=== PATIENT | female | born 1985 | race Caucasian/White ===

== ENCOUNTER 2020-07-04 15:28 | Inpatient (IN) | payer OTHER, SELFPAY ==
[2020-07-04] VITALS (7 sets, daily range): BP systolic 134–167; BP diastolic 88–103; PULSE 88–105; RESP 16–20; TEMP 36.8–37.1; O2SAT 95–98; BMI 51.6; BMI 52.6
--- NOTE | 2020-07-04 16:50 | XR_ITS ---
EXAMINATION: XR CHEST CLINICAL INFORMATION: Shortness of breath. COMPARISON: None TECHNIQUE: Frontal portable view of the chest was obtained. 5:03 PM FINDINGS: No significant abnormality is noted involving the heart, lungs, mediastinum, bony thorax or soft tissues. XR/XR chest 1V IMPRESSION: Unremarkable examination.
--- NOTE | 2020-07-04 16:53 | ED.SOB ---
HPI - SOB/Dyspnea General Chief Complaint: Upper Respiratory Symptoms Stated Complaint: Sob Time Seen by Provider: 07/04/20 16:36 Source: patient Mode of arrival: ambulatory Limitations: no limitations History of Present Illness HPI Narrative: 34-year-old female who is morbidly obese, on oral control pills here with shortness of breath since yesterday. Only with exertion. No associated chest pain, cough, fevers, chills, body aches. No recent travel or sick exposure. No leg swelling or pain. MD elicited complaint: shortness of breath Onset (ago): day(s) (<24hr) Context: occurred during exertion Timing: intermittent Severity: mild Exacerbating factors: movement Relieving factors: rest Associated symptoms: denies other symptoms Treatment prior to arrival: none Related Data Allergies Allergy/AdvReac Type Severity Reaction Status Date / Time No Known Allergies Allergy Verified 07/04/20 15:39 Review of Systems Review of Systems: Yes all other systems are reviewed and are negative Constitutional: Constitutional: Reports no additional constitutional complaints, Denies body ache(s), Denies chills, Denies fever(s), Denies headache(s) and Denies weakness Eyes: Eyes: Reports no additional eye complaints and Denies change in vision ENT: Reports system reviewed and no additional complaints, except as documented, Denies dizziness, Denies headache(s), Denies nasal congestion, Denies nasal discharge and Denies neck pain Cardiovascular: Cardiovascular: Reports no additional cardiovascular complaints, Denies chest pain, Denies leg edema and Reports dyspnea Respiratory: Respiratory: Reports no additional respiratory complaints, Denies cough and Reports dyspnea Gastrointestinal: Gastrointestinal: Reports no additional gastrointestinal complaints, Denies abdominal pain, Denies diarrhea, Denies nausea and Denies vomiting Genitourinary: Genitourinary: Reports no additional female genitourinary complaints and Denies urinary incontinence Musculoskeletal: Musculoskeletal: Reports no additional musculoskeletal complaints, Denies back pain, Denies arthralgias, Denies joint swelling, Denies neck pain, Denies numbness and Denies tingling Integumentary/Breasts: Skin/Breast: Reports system reviewed and no additional complaints, except as docu and Denies rash Neurologic: Reports system reviewed and no additional complaints, except as documented, Denies Abnormal speech present, Denies dizziness, Denies headache(s), Denies numbness, Denies tingling and Denies weakness [facility] Past Medical History Attestation statement: The following information was validated with the patient. Source: old records reviewed and nursing notes reviewed Social History Social History Alcohol intake: current Alcohol intake frequency: holidays/special occasions only Smoking Status: Never smoker Smoked in Last 30 Days: No Use of substances other than those prescribed or required for medical reasons: No Advance Directives: No Advance Directives Information Provided: No Physical Exam Vital Signs: Vital Signs: Last Vital Signs Temp 98.6 F 07/04/20 18:00 Pulse 99 07/04/20 18:36 Resp 17 07/04/20 18:36 BP 144/97 H 07/04/20 18:36 Pulse Ox 96 07/04/20 18:36 Body Mass Index 51.6 Const: General: cooperative, healthy appearing, comfortable and no acute distress Orientation/consciousness: patient oriented x3 Limitations: no limitations HENMT: Head: Yes normal to inspection Ears: hearing grossly normal bilaterally General nose exam: Normal external nose present Face and sinus: Yes normal facial exam Mouth: Normal oral and palatal mucosa present Throat: Yes posterior oropharynx normal Eyes: General: appearance normal, both eyes and all related structures Pupils: Equal, round and reactive pupils present Neck: Neck: Yes normal visual inspection Chest: Chest palpation & inspection: normal inspection of the chest Resp: Effort & Inspection: normal respiratory effort Auscultation: clear to auscultation bilaterally Cardio: Rate: regular rate Rhythm: regular rhythm Peripheral pulses: Peripheral pulses 2+ throughout GI: Inspection: Yes normal to inspection Palpation (GI): Soft to palpation and nontender Auscultation: normal bowel sounds Back/Spine/Pelvis: Thoracic/Lumbar Spine: thoracic and lumbar spine normal to inspection Skin: General skin exam: no rashes or lesions noted Neuro: General: patient oriented x3, no focal motor deficits and normal sensation to monofilament Cranial nerves: Yes Equal, round and reactive pupils present Cognition (Neuro): normal cognition Speech: No Abnormal speech present Gait exam (Neuro): Normal gait present Motor exam (neuro): 5/5 motor strength present throughout Extrem: General: Yes normal to inspection, Yes no pedal edema and Yes no calf tenderness Course Course Course Narrative: 34 yo female here with FLORES since yesterday. No other signs/symptoms. Hemodynamically stable. On oral OCP and morbidly obese. Will check CXR, EKG, d dimerm, covid testing. 1799-chest x-ray unremarkable. Elevated D-dimer. Will check CTA to rule out PE. 1844-elevated troponin. EKG shows no ischemic changes. May be secondary to heart strain from a PE. May also be myocarditis. Added inflammatory markers and will trend. 1657-ndwt-ier to Imelda MCGINNIS pending above. MDM - SOB/Dyspnea MDM Narrative Medical decision making narrative: pe, deconditioning secondary to obesity, viral syndrome Medical Records Attestation: I reviewed the patient's medical records. Lab Data Attestation: I reviewed the patient's lab results. Result diagrams: 07/04/20 17:27 07/04/20 17:27 Labs: Lab Results 07/04/20 07/04/20 07/04/20 Range/Units 17:27 17:27 17:27 WBC 12.6 H (4.8-10.8) X10*3/uL RBC 4.84 (4.20-5.50) X10*6/uL Hgb 13.9 (12.0-16.0) g/dl Hct 42.8 (37-47) % MCV 88.4 (80-98) fL MCH 28.7 (27.0-33.0) pg MCHC 32.5 (31.0-35.0) g/dl RDW 13.1 (11.0-16.0) % Plt Count 264 (160-400) X10*3/uL MPV 10.0 (9.4-12.3) fL Immature Gran % (Auto) 0.4 (0.0-0.4) % Neut % (Auto) 70.8 (45-73) % Lymph % (Auto) 20.4 (20-40) % Bullock % (Auto) 7.5 (2-11) % Eos % (Auto) 0.7 (0-4) % Baso % (Auto) 0.2 (0-2) % Lymph # (Auto) 2.6 (1.2-4.9) X10*3/uL Bullock # (Auto) 0.9 (0.1-1.2) X10*3/uL Eos # (Auto) 0.1 (0.0-0.4) X10*3/uL Baso # (Auto) 0.0 (0.0-0.2) X10*3/uL Abs Immat Gran (auto) 0.05 H (0.00-0.03) X10*3/uL Absolute Neuts (auto) 8.9 H (2.0-8.3) X10*3/uL Absolute Nucleated RBC 0.000 (0.0-0.012) X10*3/uL Nucleated RBC % (auto) 0.0 (0.0-0.2) /100WBC ESR (0-20) MM/HR PT 12.2 (10.8-13.0) SEC INR 1.0 (0.9-1.1) D-Dimer 835 NG/ML Sodium Cancelled Potassium Cancelled Chloride Cancelled Carbon Dioxide Cancelled Anion Gap Cancelled BUN Cancelled Creatinine Cancelled Estim Creat Clear Calc Cancelled Estimated GFR Cancelled Random Glucose Cancelled Calcium Cancelled Troponin I High Sens (<3.5-17.0) ng/L Coronavirus (PCR) (Negative) Influenza Type A (PCR) (Negative) Influenza Type B (PCR) (Negative) RSV RNA Qual (PCR) (Negative) 07/04/20 07/04/20 07/04/20 Range/Units 17:27 17:27 17:27 WBC (4.8-10.8) X10*3/uL RBC (4.20-5.50) X10*6/uL Hgb (12.0-16.0) g/dl Hct (37-47) % MCV (80-98) fL MCH (27.0-33.0) pg MCHC (31.0-35.0) g/dl RDW (11.0-16.0) % Plt Count (160-400) X10*3/uL MPV (9.4-12.3) fL Immature Gran % (Auto) (0.0-0.4) % Neut % (Auto) (45-73) % Lymph % (Auto) (20-40) % Bullock % (Auto) (2-11) % Eos % (Auto) (0-4) % Baso % (Auto) (0-2) % Lymph # (Auto) (1.2-4.9) X10*3/uL Bullock # (Auto) (0.1-1.2) X10*3/uL Eos # (Auto) (0.0-0.4) X10*3/uL Baso # (Auto) (0.0-0.2) X10*3/uL Abs Immat Gran (auto) (0.00-0.03) X10*3/uL Absolute Neuts (auto) (2.0-8.3) X10*3/uL Absolute Nucleated RBC (0.0-0.012) X10*3/uL Nucleated RBC % (auto) (0.0-0.2) /100WBC ESR 28 H (0-20) MM/HR PT (10.8-13.0) SEC INR (0.9-1.1) D-Dimer NG/ML Sodium Potassium Chloride Carbon Dioxide Anion Gap BUN Creatinine Estim Creat Clear Calc Estimated GFR Random Glucose Calcium Troponin I High Sens 148.7 H (<3.5-17.0) ng/L Coronavirus (PCR) NEGATIVE (Negative) Influenza Type A (PCR) NEGATIVE (Negative) Influenza Type B (PCR) NEGATIVE (Negative) RSV RNA Qual (PCR) NEGATIVE (Negative) Imaging Data Chest x-ray: Attestation: I personally reviewed and interpreted this imaging study as follows: Radiologist's impression: EXAMINATION: XR CHEST CLINICAL INFORMATION: Shortness of breath. COMPARISON: None TECHNIQUE: Frontal portable view of the chest was obtained. 5:03 PM FINDINGS: No significant abnormality is noted involving the heart, lungs, mediastinum, bony thorax or soft tissues. XR/XR chest 1V IMPRESSION: Unremarkable examination. ECG Data Attestation: I personally reviewed and interpreted this ECG as follows: Interpretation: Vent. Rate : 098 BPM Atrial Rate : 098 BPM P-R Int : 134 ms QRS Dur : 082 ms QT Int : 394 ms P-R-T Axes : 068 087 037 degrees QTc Int : 503 ms Normal sinus rhythm Prolonged QT Abnormal ECG No previous ECGs available
[2020-07-04 17:35] LABS: Basophils Percent Auto 0.2 % (0-2); Eosinophils Absolute Auto 0.1 X10*3/uL (0.0-0.4); Eosinophils Percent Auto 0.7 % (0-4); Hematocrit 42.8 % (37-47); Hemoglobin 13.9 g/dl (12.0-16.0); Imm Gran Abs Auto 0.05 X10*3/uL (0.00-0.03); Imm Gran Pct Auto 0.4 % (0.0-0.4); Lymphocytes Absolute Auto 2.6 X10*3/uL (1.2-4.9); Lymphocytes Percent Auto 20.4 % (20-40); MANUAL DIFF FLAG NO; Mean Corpuscular HGB Conc 32.5 g/dl (31.0-35.0); Mean Corpuscular Hemoglobin 28.7 pg (27.0-33.0); Mean Corpuscular Volume 88.4 fL (80-98); Monocytes Absolute Auto 0.9 X10*3/uL (0.1-1.2); Monocytes Percent Auto 7.5 % (2-11); Neutrophils Absolute Auto 8.9 X10*3/uL (2.0-8.3); Neutrophils Percent Auto 70.8 % (45-73); Platelet Count 264 X10*3/uL (160-400); Red Blood Count 4.84 X10*6/uL (4.20-5.50); Red Cell Distribution Width 13.1 % (11.0-16.0); White Blood Count 12.6 X10*3/uL (4.8-10.8)
[2020-07-04 17:42] LABS: Prothrombin Time 12.2 SEC (10.8-13.0)
[2020-07-04 17:45] LABS: D Dimer 835 NG/ML
--- NOTE | 2020-07-04 17:53 | CT_ITS ---
EXAMINATION: CT ANGIOGRAM OF THE CHEST WITH AND WITHOUT CONTRAST (CT PULMONARY ANGIOGRAM FOR PE) CLINICAL INFORMATION: Reason for Exam sob, elevated d dimer, r/o pe COMPARISON: None TECHNIQUE: Prior to contrast administration, noncontrast localization images were obtained. Subsequently, multidetector volumetric imaging was performed from the thoracic inlet to below the diaphragms following the administration of 80 mL Omnipaque 350 intravenous contrast. No contrast reaction reported Sagittal, coronal, and MIP oblique sagittal reformatted images were obtained on the CT workstation, uploaded to PACS, and reviewed. This CT examination was performed using dose optimization techniques as appropriate, variously including the following: *Automated exposure control *Adjustment of mA and/or kV according to patient size (this includes techniques or standardized protocols for targeted exams where dose is matched to indication/reason for exam; i.e. extremities or head) *Use of iterative reconstruction technique Total exam dose-length product 632 mGy-cm FINDINGS: QUALITY OF STUDY/CONTRAST BOLUS: Satisfactory. PULMONARY ARTERIES: There are extensive bilateral pleural effusions. There is a large bolus of emboli in the proximal through distal right main pulmonary artery extending into the secondary and tertiary pulmonary arteries. There are smaller pulmonary emboli in the left distal main pulmonary artery extending into all branches of the left pulmonary arteries. THORACIC AORTA: No aneurysm or dissection. LUNG: No focal consolidation, nodules or masses. PLEURA: No pleural effusion or pneumothorax. MEDIASTINUM: Normal heart size. No pericardial effusion. No hilar or mediastinal lymphadenopathy. No evidence of septal bowing or right heart strain. CHEST WALL/AXILLA: No axillary or internal mammary lymphadenopathy. OSSEOUS STRUCTURES: No acute or suspicious osseous abnormality. UPPER ABDOMEN: Unremarkable. No reflux of contrast into the hepatic veins to suggest elevated right heart pressures. CT/CT angio chest PE protocol IMPRESSION: Large volume of bilateral pulmonary emboli. No evidence of right heart strain however. Lungs are normally aerated. VTE: positive This critical result was discussed with RAS Dahl on 06/24/2020, 11:00 PM and it was ascertained that the content and urgency of the report was understood at the time of direct communication.
--- NOTE | 2020-07-04 18:03 | ECG_ITS ---
Test Reason : [id number] Blood Pressure : / mmHG Vent. Rate : 098 BPM Atrial Rate : 098 BPM P-R Int : 134 ms QRS Dur : 082 ms QT Int : 394 ms P-R-T Axes : 068 087 037 degrees QTc Int : 503 ms Normal sinus rhythm Prolonged QT Abnormal ECG No previous ECGs available Referred By: Lois Johnson Electronically Signed By:JUANITA MORAN
[2020-07-04 18:12] LABS: Influenza A PCR NEGATIVE (Negative); Influenza B PCR NEGATIVE (Negative); Resp Syncy Virus RNA Qual PCR NEGATIVE (Negative); SARS COV2 PCR INHOUSE NEGATIVE (Negative)
[2020-07-04 18:34] LABS: Troponin-I High Sensitivity 148.7 ng/L (<3.5-17.0)
[2020-07-04 19:45] LABS: Erythrocyte Sedimentation Rate 28 MM/HR (0-20)
[2020-07-04 21:19] LABS: Anion Gap 16 (12-20); Blood Urea Nitrogen 12 mg/dL (9-16); C Reactive Protein 5.09 mg/dL (< or = 0.50); Calcium 8.8 mg/dL (8.4-10.2); Carbon Dioxide 22 mmol/L (22-29); Chloride 107 mmol/L (96-108); Creatinine Clr Calc Pharmacy 140.4; Estimated Glomerular Filt Rate > 60; Glucose Random 88 mg/dL (60-115); Sodium 141 mmol/L (135-145)
[2020-07-04 21:31] LABS: Troponin-I High Sensitivity 111.9 ng/L (<3.5-17.0)
[2020-07-04] MEDS: iohexoL 350 MG/ML 100 ML INFUS..BTL IV (22:35)
[2020-07-04] MEDS: Enoxaparin Sodium 100 MG/ML SYRINGE 145 MG SUBCUT (22:41)
--- NOTE | 2020-07-04 23:49 | P.HPHOSP_ITS ---
History of Present Illness Date of Service: 07/04/20 Chief Complaint: Dyspnea 34 year old woman with medical history of obesity presented with 1-2 days of dyspnea with activity. Reports that she went to an OB appt and felt dyspnea walking from parking lot. Was trying to see her PCP to get it evaluated but no appts today so came to ED for eval as symptoms were ongoing. No coughing or hemoptysis. No dyspnea at rest, no chest pain, no dizziness or lightheadedness. No fevers/chills. No calf pain. Was seen in ED and had CT angio for elevated D dimer and was found to have PE so referred for admission. Review of Systems Review of Systems: Yes all other systems are reviewed and are negative Constitutional: Comments: Weight gain this past year-approx 70 pounds Eyes: Comments: No vision change Cardiovascular: Cardiovascular: Reports dyspnea on exertion Comments: No chest pain Respiratory: Respiratory: Reports dyspnea on exertion Comments: No dyspnea at rest or hemoptysis Gastrointestinal: Comments: No nausea, vomiting, abd pain Neurologic: Comments: No dizziness Psychiatric: Comments: No anxiety [facility] Medical History (Updated 07/04/20 @ 23:59 by Trav Barrientos MD) Obesity Social History Alcohol intake: current Alcohol intake frequency: holidays/special occasions only Smoking Status: Never smoker Smoked in Last 30 Days: No Use of substances other than those prescribed or required for medical reasons: No Advance Directives: No Advance Directives Information Provided: No Meds Allergies Allergy/AdvReac Type Severity Reaction Status Date / Time No Known Allergies Allergy Verified 07/04/20 15:39 Physical Exam Vital Signs and Narrative: Vital Signs: Last Vital Signs Temp 98.3 F 07/04/20 22:24 Pulse 105 H 07/04/20 22:24 Resp 16 07/04/20 22:24 BP 167/103 H 07/04/20 22:24 Pulse Ox 98 07/04/20 22:24 Body Mass Index 52.6 Const: General: cooperative, comfortable, no acute distress and alert HENMT: Other: Moist oral mucosa, normal oropharynx Eyes: Other: No scleral icterus or conjunctival injections General: appearance normal, both eyes and all related structures Chest: Chest palpation & inspection: normal inspection of the chest Resp: Other: Normal chest expansion, no insp crackles or exp wheezes Cardio: Other: No carotid bruit Rate: regular rate Rhythm: regular rhythm Heart sounds: S1 normal heart sound present and S2 normal heart sound present GI: Other: Nontender, nondistended Inspection: Yes normal to inspection Auscultation: normal bowel sounds Skin: General skin exam: no rashes or lesions noted Psych: Mental Status: mental status grossly normal Results Labs CBC and Chem 7: 07/04/20 17:27 07/04/20 20:51 Labs: Laboratory Results - last 24 hr 07/04/20 07/04/20 07/04/20 17:27 17:27 17:27 MCV 88.4 MCH 28.7 MCHC 32.5 RDW 13.1 Plt Count 264 MPV 10.0 Immature Gran % (Auto) 0.4 Neut % (Auto) 70.8 Lymph % (Auto) 20.4 Jennings % (Auto) 7.5 Eos % (Auto) 0.7 Baso % (Auto) 0.2 Lymph # (Auto) 2.6 Jennings # (Auto) 0.9 Eos # (Auto) 0.1 Baso # (Auto) 0.0 Abs Immat Gran (auto) 0.05 H Absolute Neuts (auto) 8.9 H Absolute Nucleated RBC 0.000 Nucleated RBC % (auto) 0.0 ESR PT 12.2 INR 1.0 D-Dimer 835 Anion Gap Cancelled Estim Creat Clear Calc Cancelled Estimated GFR Cancelled Random Glucose Cancelled Calcium Cancelled Troponin I High Sens C-Reactive Protein Coronavirus (PCR) Influenza Type A (PCR) Influenza Type B (PCR) RSV RNA Qual (PCR) 07/04/20 07/04/20 07/04/20 17:27 17:27 17:27 MCV MCH MCHC RDW Plt Count MPV Immature Gran % (Auto) Neut % (Auto) Lymph % (Auto) Jennings % (Auto) Eos % (Auto) Baso % (Auto) Lymph # (Auto) Jennings # (Auto) Eos # (Auto) Baso # (Auto) Abs Immat Gran (auto) Absolute Neuts (auto) Absolute Nucleated RBC Nucleated RBC % (auto) ESR 28 H PT INR D-Dimer Anion Gap Estim Creat Clear Calc Estimated GFR Random Glucose Calcium Troponin I High Sens 148.7 H C-Reactive Protein Coronavirus (PCR) NEGATIVE Influenza Type A (PCR) NEGATIVE Influenza Type B (PCR) NEGATIVE RSV RNA Qual (PCR) NEGATIVE 07/04/20 07/04/20 20:51 20:51 MCV MCH MCHC RDW Plt Count MPV Immature Gran % (Auto) Neut % (Auto) Lymph % (Auto) Jennings % (Auto) Eos % (Auto) Baso % (Auto) Lymph # (Auto) Jennings # (Auto) Eos # (Auto) Baso # (Auto) Abs Immat Gran (auto) Absolute Neuts (auto) Absolute Nucleated RBC Nucleated RBC % (auto) ESR PT INR D-Dimer Anion Gap 16 Estim Creat Clear Calc 140.4 Estimated GFR > 60 Random Glucose 88 Calcium 8.8 Troponin I High Sens 111.9 H C-Reactive Protein 5.09 H Coronavirus (PCR) Influenza Type A (PCR) Influenza Type B (PCR) RSV RNA Qual (PCR) Imaging Radiologist's Impressions: Impressions Chest X-Ray 07/04/20 16:50 IMPRESSION: Unremarkable examination. Chest CTA 07/04/20 17:53 IMPRESSION: Large volume of bilateral pulmonary emboli. No evidence of right heart strain however. Lungs are normally aerated. VTE: positive This critical result was discussed with RAS Dahl on 06/24/2020, 11:00 PM and it was ascertained that the content and urgency of the report was understood at the time of direct communication. Assessment and Plan (1) Pulmonary embolism: Status: Acute 34 year old woman presenting with dyspnea with activity, found to have large volume bilateral pulmonary emboli. Pulmonary emboli Found to have bilateral PE on CTA. Risk factor includes oral contraceptive use for last 2 years. No fam hx of clots. Started on Lovenox in ED-transition to PO anticoagulation at some point soon assuming stability. Continue at 1mg/kg subcutaneous. Lower extremity dopplers ordered to eval for source of clot. Echo also ordered to eval for right heart strain, though CTA mentioned that no strain seen on CT. EKG reviewed and showed NSR with S in lead I and small Q in III. Repeat Troponin did not show upward trend. Continue supplemental oxygen as needed. DVT proph SC Lovenox ordered for PE.
[2020-07-05] VITALS (7 sets, daily range): BP systolic 117–159; BP diastolic 78–89; PULSE 90–103; RESP 16–22; TEMP 36.5–37.2; O2SAT 95–98; BMI 51.5
--- NOTE | 2020-07-05 00:51 | US_ITS ---
EXAMINATION: US VENOUS ULTRASOUND WITH DOPPLER LOWER EXTREMITY, BILATERAL CLINICAL INFORMATION: Pulmonary embolism. Evaluate for source of thrombus. COMPARISON: CTA of the chest done on 07/04/2020. TECHNIQUE: Ultrasound of the deep veins is performed from the hip to the calf with compression sonography and color and pulse Doppler assessment. Spectral analysis with color-flow imaging is performed. FINDINGS: RIGHT: There is normal venous compression and respiratory variation and augmented flow. The visualized common femoral vein, superficial femoral vein, profunda femoral vein, popliteal vein, and the trifurcation region shows no evidence of deep venous thrombosis. There is no significant popliteal fossa cyst. Evaluation of the peroneal vein is technically limited due to suboptimal visualization. LEFT: There is normal venous compression and respiratory variation and augmented flow. The visualized common femoral vein, superficial femoral vein, profunda femoral vein, popliteal vein, and the trifurcation region shows no evidence of deep venous thrombosis. There is no significant popliteal fossa cyst. Evaluation of the peroneal veins is technically limited due to suboptimal visualization. If the patient's symptoms persist, followup ultrasound in 5 days 7 days might be of value to exclude proximal propagation from a non-visualized calf vein. US/US venous duplex LE BI IMPRESSION: No DVT demonstrated in the bilateral lower extremity. Evaluation of both peroneal veins is technically limited due to suboptimal visualization.
[2020-07-05] MEDS: 0.9 % Sodium Chloride Flush 3 ML SYRINGE IVFLUSH ×2 (02:27→16:48)
[2020-07-05 03:09] LABS: Hematocrit 39.9 % (37-47); Mean Corpuscular HGB Conc 32.6 g/dl (31.0-35.0); Mean Corpuscular Hemoglobin 28.6 pg (27.0-33.0); Mean Corpuscular Volume 87.7 fL (80-98); Mean Platelet Volume 10.1 fL (9.4-12.3); Platelet Count 257 X10*3/uL (160-400); Red Blood Count 4.55 X10*6/uL (4.20-5.50); Red Cell Distribution Width 13.2 % (11.0-16.0); White Blood Count 12.4 X10*3/uL (4.8-10.8)
[2020-07-05 03:15] LABS: INTERNATIONAL NORM RATIO 1.1 (0.9-1.1); Prothrombin Time 13.4 SEC (10.8-13.0)
[2020-07-05 03:18] LABS: Partial Thromboplastin Time 35.7 SEC (24.1-38.0)
[2020-07-05 07:52] LABS: Hematocrit 40.2 % (37-47); Hemoglobin 12.8 g/dl (12.0-16.0); Mean Corpuscular HGB Conc 31.8 g/dl (31.0-35.0); Mean Corpuscular Hemoglobin 28.1 pg (27.0-33.0); Mean Corpuscular Volume 88.2 fL (80-98); Mean Platelet Volume 10.5 fL (9.4-12.3); Platelet Count 253 X10*3/uL (160-400); Red Blood Count 4.56 X10*6/uL (4.20-5.50); Red Cell Distribution Width 13.1 % (11.0-16.0); White Blood Count 9.4 X10*3/uL (4.8-10.8)
[2020-07-05 08:14] LABS: Anion Gap 15 (12-20); Blood Urea Nitrogen 14 mg/dL (9-16); Calcium 8.4 mg/dL (8.4-10.2); Carbon Dioxide 20 mmol/L (22-29); Chloride 108 mmol/L (96-108); Creatinine Clr Calc Pharmacy 133.9; Estimated Glomerular Filt Rate > 60; Glucose Random 96 mg/dL (60-115); Potassium 4.1 mmol/l (3.3-5.1); Sodium 139 mmol/L (135-145)
--- NOTE | 2020-07-05 11:50 | MHC.CM.PN ---
dc plan home no servceis pt will drive herself home car is in hospitial parking lot
[2020-07-05] MEDS: Enoxaparin Sodium 150 MG/ML SYRINGE SUBCUT (12:12)
[2020-07-05] MEDS: Flu Vacc QS2020-21(6mos up)/PF 0.5 ML SYRINGE IM (12:14)
--- NOTE | 2020-07-05 14:31 | HO.PM.IMPN ---
Subjective Subjective Date of Service: 07/05/20 Interval History: Patient being followed for bilateral pulmonary embolism patient denies any chest pain or shortness of breath this morning resting comfortably. Review of Systems General no headache, no dizziness,,no fever chills. CVS no chest pain, no palpitation. Respiratory no cough, no sputum production, no respiratory distress. Gastrointestinal no nausea, no vomiting, no abdominal pain Physical Exam Vital Signs: Vital Signs: Last Vital Signs Temp 97.7 F 07/05/20 11:15 Pulse 94 07/05/20 11:15 Resp 18 07/05/20 11:15 BP 130/78 07/05/20 11:15 Pulse Ox 98 07/05/20 11:15 Body Mass Index 51.5 General patient resting comfortably in no acute distress. Neck is supple no JVD. CVS regular rate rhythm, Respiratory lungs clear to auscultation, no respiratory distress, no wheeze, no rhonchi. Gastrointestinal abdomen soft, nontender, bowel sounds audible Extremities no edema. Neuro nonfocal Skin no rash Objective Data Current Medications Generic Name Dose Route Start Last Admin Trade Name Freq PRN Reason Stop Dose Admin Acetaminophen 650 mg 07/05/20 00:51 Acetaminophen 325 Mg Tablet PO Q6H PRN Pain, Mild (Pain Scale 1-3) Sodium Chloride 3 ml 07/05/20 00:51 07/05/20 09:16 0.9 % Sodium Chloride Flush 3 Ml Syringe IVFLUSH Not Given QSHIFT SABINO Labs CBC & Chem 7: 07/05/20 06:40 07/05/20 07:26 Assessment and Plan (1) Pulmonary embolism: Status: Acute (2) Morbid obesity: Status: Acute Assessment and Plan: 34 year old woman presenting with dyspnea with activity, found to have elevated D-dimer, CTA showed large volume bilateral pulmonary emboli. Bilateral Pulmonary emboli Patient denies chest pain or shortness of breath, CT chest showed bilateral PE, Risk factor includes oral contraceptive use for last 2 years. Morbid obesity and sedentary lifestyle, bilateral Doppler study lower extremity showed no DVT Continue Lovenox b.i.d. and transition to oral anticoagulation in next 24 hours, CT chest showed no right-sided heart strain, echo pending Morbid obesity contributing to current illness. Weight reduction recommended. DVT proph SC Lovenox ordered for PE.
[2020-07-05] MEDS: Acetaminophen 325 MG TABLET 650 MG PO (19:54)
[2020-07-05 22:52] LABS: Prothrombin Time 11.8 SEC (10.8-13.0)
[2020-07-06] VITALS: BP 145/92; PULSE 98; RESP 16; TEMP 36.6; O2SAT 97
--- NOTE | 2020-07-06 | ECG_ITS ---
Test Reason : follow up on QTC Blood Pressure : / mmHG Vent. Rate : 098 BPM Atrial Rate : 098 BPM P-R Int : 132 ms QRS Dur : 082 ms QT Int : 396 ms P-R-T Axes : 052 070 031 degrees QTc Int : 505 ms Normal sinus rhythm Prolonged QT Abnormal ECG When compared to the previous EKG of 06 jun 2020, no significant change Referred By: Lucila Rivera Electronically Signed By:JUANITA MORAN
[2020-07-06] MEDS: 0.9 % Sodium Chloride Flush 3 ML SYRINGE IVFLUSH ×2 (00:09→07:13)
[2020-07-06 01:11] LABS: Hematocrit 40.2 % (37-47); Mean Corpuscular HGB Conc 32.3 g/dl (31.0-35.0); Mean Corpuscular Hemoglobin 28.6 pg (27.0-33.0); Mean Corpuscular Volume 88.4 fL (80-98); Mean Platelet Volume 10.3 fL (9.4-12.3); Platelet Count 267 X10*3/uL (160-400); Red Blood Count 4.55 X10*6/uL (4.20-5.50); White Blood Count 9.7 X10*3/uL (4.8-10.8)
[2020-07-06] MEDS: Enoxaparin Sodium 150 MG/ML SYRINGE 145 MG SUBCUT (01:17)
[2020-07-06 01:19] LABS: Prothrombin Time 11.5 SEC (10.8-13.0)
[2020-07-06 01:21] LABS: Partial Thromboplastin Time 28.9 SEC (24.1-38.0)
[2020-07-06 03:22] VITALS: BP 135/91; PULSE 92; RESP 16; TEMP 36.4; O2SAT 96
[2020-07-06 07:07] LABS: MANUAL DIFF FLAG NO
[2020-07-06 07:11] LABS: Basophils Percent Auto 0.4 % (0-2); Eosinophils Absolute Auto 0.2 X10*3/uL (0.0-0.4); Eosinophils Percent Auto 2.3 % (0-4); Hemoglobin 13.2 g/dl (12.0-16.0); Imm Gran Abs Auto 0.02 X10*3/uL (0.00-0.03); Imm Gran Pct Auto 0.2 % (0.0-0.4); Lymphocytes Absolute Auto 3.4 X10*3/uL (1.2-4.9); Lymphocytes Percent Auto 37.8 % (20-40); Mean Corpuscular HGB Conc 32.2 g/dl (31.0-35.0); Mean Corpuscular Hemoglobin 28.6 pg (27.0-33.0); Mean Corpuscular Volume 88.7 fL (80-98); Mean Platelet Volume 10.2 fL (9.4-12.3); Monocytes Absolute Auto 0.8 X10*3/uL (0.1-1.2); Monocytes Percent Auto 8.7 % (2-11); Neutrophils Absolute Auto 4.5 X10*3/uL (2.0-8.3); Neutrophils Percent Auto 50.6 % (45-73); Platelet Count 261 X10*3/uL (160-400); Red Blood Count 4.62 X10*6/uL (4.20-5.50); Red Cell Distribution Width 13.1 % (11.0-16.0)
[2020-07-06 07:34] VITALS: BP 138/91; PULSE 90; RESP 18; TEMP 37.1; O2SAT 93
--- NOTE | 2020-07-06 11:00 | CA_ITS ---
Transthoracic Echocardiogram Patient (Last, First, Middle): Meg Hernández, Gender: Female Date of : 1985 Age: 34 Procedure Date: 07/06/2020 Procedure Type: Transthoracic Echocardiogram Location[place] [facility] [place] Height: 167.64 cm Weight: 144.7 kg BSA: 2.44 m2 Heart Rate: bpm BP: 117 / 86 mmHg Top Coater: Referring MD: Trav Barrientos MD Symptoms: PE, eval for right heart strain Study Quality: Fair ECG Rhythm: Sinus Conclusions: - The left ventricular systolic function is normal. The visually estimated ejection fraction is between 60-65%. - Mildly increased right ventricular cavity size. There is normal right ventricular systolic function. - No obvious valvular pathology seen on this study. - The pulmonary artery systolic pressure is normal. Findings Left Ventricle Normal left ventricular cavity size. There is mildly increased left ventricular wall thickness. The left ventricular systolic function is normal. The visually estimated ejection fraction is between 60-65%. There is no evidence of regional wall motion abnormalities. Diastolic function is normal for age. Right Ventricle Mildly increased right ventricular cavity size. There is normal right ventricular systolic function. Atria The left atrium is normal in size. The right atrium is normal in size. Aortic Valve There is a normal trileaflet aortic valve. There is no aortic valve stenosis. There is no aortic valve regurgitation. Mitral Valve The mitral valve appears normal. There is trace mitral valve regurgitation. There is no mitral valve stenosis. Pulmonic Valve The pulmonic valve was not well visualized. Tricuspid Valve Normal tricuspid valve structure. There is trace tricuspid valve regurgitation. The pulmonary artery systolic pressure is normal. Great Vessels The aortic annulus, sinuses of valsalva, and asc aorta are normal in size. Venous The inferior vena cava is normal in size and collapses greater than 50% with inspiration. Pericardium/Pleural There is no evidence of pericardial effusion. Prior Study Comparison No prior study available for comparison. Recommendations, Care & Conclusions No obvious valvular pathology seen on this study. Measurements 2D Linear Measurements IVSd: 1.45 0.6-0.9/0.6-1.0 cm LVIDd: 3.51 3.9-5.3/4.2-5.9 cm LVIDd Index: 1.44 2.4-3.2/2.2-3.1 cm/m2 LVIDs: 2.27 2.0-3.6 cm LVPWd: 1.45 0.7-1.1 cm Ao Root: 3.20 2.1-3.5 cm LA Diam: 3.70 2.7-3.8/3.0-4.0 cm LAIDs Index: 1.52 1.5-2.3 cm/m2 LV Mass: 228.94 67-162/88-224 g LV Mass Index: 93.83 43-95/49-115 g/m2 LVOT Diam: 2.60 3.0+(-)1.3 cm 2D Systolic Function EF 4C: 71.00 >55% EF 2C: 63.40 >55% EF BiP: 68.00 >55% Mitral Valve MV Pk E: 0.92 MV PK A: 0.92 MV Decel Time: 155.00 E/A: 1.00 E'Lateral: 15.80 E'Medial: 10.30 E/E' Med: 9.00 E/E' Lat: 5.80 PHT: 45.00 MVA PHT: 4.89 Decel Beckham: 5.95 Aortic Valve AoV Pk Michele: 1.45 AoV Mn Michele: 0.91 AoV VTI: 0.27 AoV Pk Grad: 8.00 Aov Mn Grad: 4.00 JUANITA Cont.VTI: 3.35 LVOT LVOT Pk Michele: 1.05 LVOT Mn Michele: 0.68 LVOT VTI: 0.17 LVOT Pk Grad: 4.00 LVOT Mn Grad: 2.00 LVOT Diam: 2.60 LVOT Area: 5.31 Diastolic Function MV Pk E: 0.92 MV Pk A: 0.92 E/A: 1.00 E'Medial: 10.30 E/E' Med: 9.00 E' Laterial: 15.80 E/E' Lat: 5.80 Tricuspid Valve TR Pk Michele: 2.18 TR Pk Grad: 19.00 RA Press: 3.00 RVSP: 22.00 Great Vessels Aorta Ao Root-2D: 3.20 2.0-3.7 cm Ao Asc: 3.20 2.1-3.4 cm Pulmonary Valve PV Pk Michele: 0.92 Peak PV Grad: 3.00 Updated in Other Vendor System with Status of Final Gab Mejía MD electronically signed on 07/06/2020 12:59:57 PM with status of Final
[2020-07-06] MEDS: Rivaroxaban 15 MG TABLET PO (11:07)
[2020-07-06 11:09] VITALS: BP 156/82; PULSE 96; RESP 18; TEMP 36.9; O2SAT 94
--- NOTE | 2020-07-06 14:57 | MHC.CM.PN ---
Pt provided with a 30 day free trial coupon for Xarelto and instructed on how and why to use it. Pt reports she recently moved here. She asked that her meds be sent to [facility] on [address] in [place] but reports she has never used this pharmacy before. She is aware she will likely have to provide the insurance information and coupon before getting her prescriptions. Pt reports she has a PCP, Dr hoang at [place]. Pt will DC home today with no new services pt will arrange transportation
--- NOTE | 2020-07-06 15:23 | PM.DS ---
DS: Providers Provider Date of admission: 07/05/20 00:11 Primary care physician: Glen Solis MD DS: Diagnosis Discharge Diagnosis (1) Pulmonary embolism: Status: Acute (2) Morbid obesity: Status: Acute DS: Medications Discharge Medications Home Medications: Previous Rx's Medication Instructions Recorded rivaroxaban [Xarelto] 15 mg PO BID #41 tab 07/06/20 rivaroxaban [Xarelto] 20 mg PO DAILY #30 tab 07/06/20 DS: Summary Hospital Course Hospital Course: Chief Complaint: Dyspnea 34 year old woman with medical history of obesity presented with 1-2 days of dyspnea with activity. Reports that she went to an OB appt and felt dyspnea walking from parking lot. Was trying to see her PCP to get it evaluated but no appts today so came to ED for eval as symptoms were ongoing. No coughing or hemoptysis. No dyspnea at rest, no chest pain, no dizziness or lightheadedness. No fevers/chills. No calf pain. Was seen in ED and had CT angio for elevated D dimer and was found to have PE so referred for admission. Hospitalist course 34 year old woman presenting with dyspnea with activity, found to have elevated D-dimer, CTA showed large volume bilateral pulmonary emboli. Bilateral Pulmonary emboli Patient admitted to intermediate care unit treated with subQ Lovenox twice daily and echocardiogram showed normal EF and right systolic function, lower extremity Doppler study showed no DVT, EKG showed prolonged QT otherwise no ischemic change or right heart strain pattern. Repeat EKG showed no change PE likely related to oral contraceptive use for last 2 years,Morbid obesity and sedentary lifestyle, patient placed on Xarelto 15 mg b.i.d. for 3 weeks followed by Xarelto 20 mg daily, oral contraceptive have been discontinued. Morbid obesity contributing to current illness. Weight reduction recommended. Time Spent with Patient Time attestation: Total time spent providing and/or coordinating discharge services: Physical Exam Vital Signs: Vital Signs: Last Vital Signs Temp 98.4 F 07/06/20 11:09 Pulse 96 07/06/20 11:09 Resp 18 07/06/20 11:09 BP 156/82 H 07/06/20 11:09 Pulse Ox 94 07/06/20 11:09 Body Mass Index 51.5 Const: Other: General patient resting comfortably in no acute distress. Neck supple no JVD. CVS regular rate rhythm, Respiratory lungs clear to auscultation, no respiratory distress Gastrointestinal abdomen soft, nontender, bowel sounds audible. Extremities no clubbing cyanosis or edema. Neuro nonfocal Skin no rash DS: Data Data Completed and Pending Labs on day of discharge: Laboratory Last Values WBC 9.0 X10*3/uL (4.8-10.8) 07/06/20 05:48 RBC 4.62 X10*6/uL (4.20-5.50) 07/06/20 05:48 Hgb 13.2 g/dl (12.0-16.0) 07/06/20 05:48 Hct 41.0 % (37-47) 07/06/20 05:48 MCV 88.7 fL (80-98) 07/06/20 05:48 MCH 28.6 pg (27.0-33.0) 07/06/20 05:48 MCHC 32.2 g/dl (31.0-35.0) 07/06/20 05:48 RDW 13.1 % (11.0-16.0) 07/06/20 05:48 Plt Count 261 X10*3/uL (160-400) 07/06/20 05:48 MPV 10.2 fL (9.4-12.3) 07/06/20 05:48 Immature Gran % (Auto) 0.2 % (0.0-0.4) 07/06/20 05:48 Neut % (Auto) 50.6 % (45-73) 07/06/20 05:48 Lymph % (Auto) 37.8 % (20-40) 07/06/20 05:48 [place] % (Auto) 8.7 % (2-11) 07/06/20 05:48 Eos % (Auto) 2.3 % (0-4) 07/06/20 05:48 Baso % (Auto) 0.4 % (0-2) 07/06/20 05:48 Lymph # (Auto) 3.4 X10*3/uL (1.2-4.9) 07/06/20 05:48 [place] # (Auto) 0.8 X10*3/uL (0.1-1.2) 07/06/20 05:48 Eos # (Auto) 0.2 X10*3/uL (0.0-0.4) 07/06/20 05:48 Baso # (Auto) 0.0 X10*3/uL (0.0-0.2) 07/06/20 05:48 Abs Immat Gran (auto) 0.02 X10*3/uL (0.00-0.03) 07/06/20 05:48 Absolute Neuts (auto) 4.5 X10*3/uL (2.0-8.3) 07/06/20 05:48 Absolute Nucleated RBC 0.000 X10*3/uL (0.0-0.012) 07/06/20 05:48 Nucleated RBC % (auto) 0.0 /100WBC (0.0-0.2) 07/06/20 05:48 ESR 28 MM/HR (0-20) H 07/04/20 17:27 PT 11.5 SEC (10.8-13.0) 07/06/20 00:52 INR 1.0 (0.9-1.1) 07/06/20 00:52 APTT 28.9 SEC (24.1-38.0) 07/06/20 00:52 D-Dimer 835 NG/ML 07/04/20 17:27 Sodium 139 mmol/L (135-145) 07/05/20 07:26 Potassium 4.1 mmol/l (3.3-5.1) 07/05/20 07:26 Chloride 108 mmol/L (96-108) 07/05/20 07:26 Carbon Dioxide 20 mmol/L (22-29) L 07/05/20 07:26 Anion Gap 15 (12-20) 07/05/20 07:26 BUN 14 mg/dL (9-16) 07/05/20 07:26 Creatinine 0.89 mg/dL (0.5-1.4) 07/05/20 07:26 Estim Creat Clear Calc 133.9 07/05/20 07:26 Estimated GFR > 60 07/05/20 07:26 Random Glucose 96 mg/dL (60-115) 07/05/20 07:26 Calcium 8.4 mg/dL (8.4-10.2) 07/05/20 07:26 Troponin I High Sens 111.9 ng/L (<3.5-17.0) H 07/04/20 20:51 C-Reactive Protein 5.09 mg/dL (< or = 0.50) H 07/04/20 20:51 Coronavirus (PCR) NEGATIVE (Negative) 07/04/20 17:27 Influenza Type A (PCR) NEGATIVE (Negative) 07/04/20 17:27 Influenza Type B (PCR) NEGATIVE (Negative) 07/04/20 17:27 RSV RNA Qual (PCR) NEGATIVE (Negative) 07/04/20 17:27 Discharge Plan Discharge Patient Disposition: Home, Self-Care Referrals: Glen Solis MD [Primary Care Provider] - Discharge Medications: New Xarelto 15 mg Tablet 15 mg PO BID Qty: 41 RF: 0 Xarelto 20 mg tablet 20 mg PO DAILY Qty: 30 RF: 0 Discontinued levonorgestrel-ethinyl estrad 0.15 mg-30 mcg (91) tablets,dose pack,3 month 1 tab PO DAILY RF: 0 Discharge Orders: Discharge Order (Routine); Ordered 07/06/20 Ordered By: Lucila Rievra Diet: regular diet Activity on Discharge: As tolerated Visit Report Forms: Patient Portal Discharge page Care Plan Goals: Stop current control pills and follow-up with PCP for alternate treatment Health Concerns: Pulmonary embolism Plan of Treatment: Follow-up with PCP
== END 2020-07-06 15:53 | disposition home or self-care (01) | DRG 176 ==
LOC: HO.ED 17:33 → HO.IMC 07-05 00:30
PROVIDERS: Internal Medicine; Nurse Practitioner Family; Physician Assistant; Admitting Provider Internal Medicine; Emergency Provider Emergency Medicine; PCP Internal Medicine; Visit Provider Hospitalist
DX: I26.99 Other pulmonary embolism without acute cor pulmonale (principal); Z68.43 Body mass index [BMI] 50.0-59.9, adult; Z23 Encounter for immunization; Z20.828 Contact with and (suspected) exposure to other viral communicable diseases; E66.01 Morbid (severe) obesity due to excess calories; Z79.3 Long term (current) use of hormonal contraceptives
CPT/HCPCS: 0241U; 36415; 71045; 71275; 80048; 84484; 85025; 85027; 85379; 85610; 85652; 85730; 86140; 90686; 93005; 93306; 93970; 96372; 99285; J1650; Q9967

== ENCOUNTER 2021-05-03 10:43 | Emergency (ER) | payer OTHER, SELFPAY ==
--- NOTE | 2021-05-03 | ECG_ITS ---
Test Reason : SOB Blood Pressure : / mmHG Vent. Rate : 070 BPM Atrial Rate : 070 BPM P-R Int : 148 ms QRS Dur : 090 ms QT Int : 432 ms P-R-T Axes : 038 046 029 degrees QTc Int : 466 ms Normal sinus rhythm with sinus arrhythmia Normal ECG Heart rate has decreased Referred By: Heike Toney Electronically Signed By:SABA ISAAC MD
--- NOTE | ~2021-05-03 | CT_ITS ---
EXAMINATION: CT ANGIOGRAM OF THE CHEST WITHOUT AND WITH CONTRAST (CT PULMONARY ANGIOGRAM FOR PE) CLINICAL INFORMATION: History of pulmonary embolism. Shortness of breath. Elevated D-dimer. Rule out pulmonary embolism. COMPARISON: Chest x-ray of 05/03/[address] of 07/04/2020. TECHNIQUE: Prior to contrast administration, noncontrast localization images were obtained. Subsequently, multidetector volumetric imaging was performed from the thoracic inlet to below the diaphragms following the administration of 85 mL Omnipaque 350 intravenous contrast. No contrast reaction reported Sagittal, coronal, and MIP oblique sagittal reformatted images were obtained on the CT workstation, uploaded to PACS, and reviewed. This CT examination was performed using dose optimization techniques as appropriate, variously including the following: *Automated exposure control *Adjustment of mA and/or kV according to patient size (this includes techniques or standardized protocols for targeted exams where dose is matched to indication/reason for exam; i.e. extremities or head) *Use of iterative reconstruction technique Total exam dose-length product 569 mGy-cm FINDINGS: QUALITY OF STUDY/CONTRAST BOLUS: Satisfactory. PULMONARY ARTERIES: No central or segmental pulmonary emboli. THORACIC AORTA: No aneurysm or dissection. LUNG: No focal consolidation, nodules or masses. Linear atelectasis is noted in the posterior segment of the right upper lobe. PLEURA: No pleural effusion or pneumothorax. MEDIASTINUM: Normal heart size. No pericardial effusion. No hilar or mediastinal lymphadenopathy. No evidence of septal bowing or right heart strain. CHEST WALL/AXILLA: No axillary or internal mammary lymphadenopathy. OSSEOUS STRUCTURES: No acute or suspicious osseous abnormality. UPPER ABDOMEN: Unremarkable. No reflux of contrast into the hepatic veins to suggest elevated right heart pressures. CT/CT angio chest PE protocol IMPRESSION: No evidence of pulmonary emboli. No acute pulmonary process. VTE: Negative
--- NOTE | ~2021-05-03 | XR_ITS ---
EXAMINATION: XR CHEST CLINICAL INFORMATION: Shortness of breath COMPARISON: Previous chest x-ray and chest CTA June 2020 TECHNIQUE: Frontal view of the chest was obtained. FINDINGS: No significant abnormality is noted involving the heart, lungs, mediastinum, bony thorax or soft tissues. XR/XR chest 1V IMPRESSION: Unremarkable examination.
[2021-05-03 10:58] VITALS: BP 159/96; PULSE 76; RESP 18; TEMP 36.7; O2SAT 98; BMI 53.2
[2021-05-03 11:53] LABS: Hematocrit 41.5 % (37.0-47.0); Hemoglobin 13.2 g/dl (12.0-16.0); Mean Corpuscular HGB Conc 31.8 g/dl (31.0-35.0); Mean Corpuscular Volume 88.1 fL (80.0-98.0); Mean Platelet Volume 9.5 fL (9.4-12.3); Platelet Count 285 X10*3/uL (160-400); Red Blood Count 4.71 X10*6/uL (4.20-5.50); White Blood Count 10.5 X10*3/uL (4.8-10.8)
[2021-05-03 12:05] LABS: Anion Gap 12 (12-20); Blood Urea Nitrogen 11 mg/dL (9-16); Calcium 8.9 mg/dL (8.4-10.2); Carbon Dioxide 25 mmol/L (22-29); Chloride 107 mmol/L (96-108); Creatinine Clr Calc Pharmacy 145.3; Estimated Glomerular Filt Rate > 60; Glucose Random 88 mg/dL (60-115); Potassium 4.2 mmol/L (3.3-5.1); Sodium 140 mmol/L (135-145)
--- NOTE | 2021-05-03 12:20 | ED.SOB ---
HPI - SOB/Dyspnea General Chief Complaint: Dyspnea Stated Complaint: sob Time Seen by Provider: 05/03/21 12:20 Source: patient Mode of arrival: ambulatory Limitations: no limitations History of Present Illness HPI Narrative: [age] year female came in for evaluation of shortness of breath. Patient came in for evaluation progressive worsening of shortness of breath over the past week, symptoms is constant for a week, described as moderate 5 lb 10 in severity, no other associated symptoms no chest pain, no recent travel, no lower extremity swelling or tenderness. Worsening of breath with no relieving factor, no worsening factor. Patient had similar symptoms in the past when she had PE last year, patient is not on any anticoagulation therapy at this plan. Reportedly PE thought to be secondary to contraceptive pills that the patient was on. Related Data Previous Rx's Medication Instructions Recorded rivaroxaban 15 mg tablet (Xarelto) 15 mg PO BID #41 tab 07/06/20 rivaroxaban 20 mg tablet (Xarelto) 20 mg PO DAILY #30 tab 07/06/20 Allergies Allergy/AdvReac Type Severity Reaction Status Date / Time No Known Allergies Allergy Verified 07/04/20 15:39 Review of Systems Review of Systems: All other systems are reviewed and are negative Constitutional: Reports as per HPI and Reports no additional constitutional complaints Eyes: Reports as per HPI and Reports no additional eye complaints Reports system reviewed and no additional complaints, except as documented Cardiovascular: Reports as per HPI and Reports no additional cardiovascular complaints Respiratory: Reports as per HPI and Reports no additional respiratory complaints Gastrointestinal: Reports as per HPI and Reports no additional gastrointestinal complaints Genitourinary: Reports no additional female genitourinary complaints Musculoskeletal: Reports no additional musculoskeletal complaints Skin/Breast: Reports system reviewed and no additional complaints, except as docu Psychiatric: Reports no additional psychiatric complaints Endocrine: Reports no additional endocrine complaints Hematologic/Lymphatic: Reports no additional hematologic/lymphatic complaints Allergic/Immunologic: Reports no additional allergic/immunologic complaints Reports system reviewed and no additional complaints, except as documented and Reports Abnormal speech present [facility] Past Medical History Medical History Obesity Pulmonary emboli Social History Social History Household Members: None Housing: House Do you presently have visiting nurse or other home services: No Alcohol intake: current Alcohol intake frequency: holidays/special occasions only Advance Directives: No Advance Directives Information Provided: No Patient : No service: No Physical Exam Vital Signs: Vital Signs: Last Vital Signs Temp 98.4 F 05/03/21 13:02 Pulse 96 05/03/21 13:02 Resp 16 05/03/21 13:02 BP 139/100 H 05/03/21 13:02 Pulse Ox 99 05/03/21 13:02 Body Mass Index 53.2 Vital signs have been reviewed as appeared to be correct. Blood pressure normal. Heart rate normal. Respiration rate normal. Temperature normal. Oxygen saturation normal. Appearance: Alert. Oriented X3. No acute distress. Head: Normal external exam. Normocephalic. Atraumatic. No Hood signs noted. No raccoon eyes noted Eyes: PERRLA. EOMI. Conjunctiva and sclera normal. Eyelids normal. ENT: TM's Normal. Pharynx normal. Uvula midline. Moist mucous membranes. No trismus noted. No drooling noted. No muffled voice noted. Neck: Normal inspection. Neck supple. FROM. No adenopathy. Thyroid Normal. No meningeal signs. No neck mass noted. CVS: Normal heart rate and rhythm. Heart sound normal. No murmurs noted. Pulses normal throughout. Respiratory: No respiratory distress. Painless inspiration. Breath sounds normal. No wheezes/rales/rhonchi noted. Chest nontender. No accessory muscle usage noted or decreased air movement noted. Abdomen: Soft and nontender. Bowel sounds normal in all 4 quadrants. No distention noted. No organomegaly noted. No visible injury noted. Back: No CVA tenderness. Full range of motion noted. Skin: Skin warm and dry. Normal skin color. Normal skin turgor. No rashes/lesions/lacerations noted. Extremities: No lower extremity edema. Extremities exhibit normal range of motion. Extremities nontender. Neuro: Oriented X 3. Cranial nerve exam: II-XII are grossly intact No motor deficit. No sensory deficit. Reflexes normal. Course Course Course Narrative: Assessment and plan. 35-year-old female came in with chest pain and shortness of breath, patient had history of PE with elevated D-dimer patient got CT angiogram of the chest which showed no acute pulmonary embolism, patient remained stable with stable vital signs in the emergency department, no tachycardia, no tachypnea, no hypoxia. CTA also ruled out other causes of shortness of breath, patient is negative for COVID infection. MDM - SOB/Dyspnea Medical Records Attestation: I reviewed the patient's medical records. Lab Data Attestation: I reviewed the patient's lab results. Result diagrams: 05/03/21 11:47 05/03/21 11:47 Labs: Lab Results 05/03/21 05/03/21 05/03/21 Range/Units 11:47 11:47 12:37 WBC 10.5 (4.8-10.8) X10*3/uL RBC 4.71 (4.20-5.50) X10*6/uL Hgb 13.2 (12.0-16.0) g/dl Hct 41.5 (37.0-47.0) % MCV 88.1 (80.0-98.0) fL MCH 28.0 (27.0-33.0) pg MCHC 31.8 (31.0-35.0) g/dl RDW 14.0 (11.0-16.0) % Plt Count 285 (160-400) X10*3/uL MPV 9.5 (9.4-12.3) fL Absolute Nucleated RBC 0.000 (0.0-0.012) X10*3/uL Nucleated RBC % (auto) 0.0 (0.0-0.2) /100WBC D-Dimer 289 NG/ML Sodium 140 (135-145) mmol/L Potassium 4.2 (3.3-5.1) mmol/L Chloride 107 (96-108) mmol/L Carbon Dioxide 25 (22-29) mmol/L Anion Gap 12 (12-20) BUN 11 (9-16) mg/dL Creatinine 0.83 (0.5-1.4) mg/dL Estim Creat Clear Calc 145.3 Estimated GFR > 60 Random Glucose 88 (60-115) mg/dL Calcium 8.9 (8.4-10.2) mg/dL Troponin I High Sens (<3.5-17.0) ng/L 05/03/21 Range/Units 12:37 WBC (4.8-10.8) X10*3/uL RBC (4.20-5.50) X10*6/uL Hgb (12.0-16.0) g/dl Hct (37.0-47.0) % MCV (80.0-98.0) fL MCH (27.0-33.0) pg MCHC (31.0-35.0) g/dl RDW (11.0-16.0) % Plt Count (160-400) X10*3/uL MPV (9.4-12.3) fL Absolute Nucleated RBC (0.0-0.012) X10*3/uL Nucleated RBC % (auto) (0.0-0.2) /100WBC D-Dimer NG/ML Sodium (135-145) mmol/L Potassium (3.3-5.1) mmol/L Chloride (96-108) mmol/L Carbon Dioxide (22-29) mmol/L Anion Gap (12-20) BUN (9-16) mg/dL Creatinine (0.5-1.4) mg/dL Estim Creat Clear Calc Estimated GFR Random Glucose (60-115) mg/dL Calcium (8.4-10.2) mg/dL Troponin I High Sens < 3.5 (<3.5-17.0) ng/L Imaging Data CT angio of the chest: Radiologist's impression: No evidence of pulmonary emboli, no acute pulmonary process. Chest x-ray: Radiologist's impression: Unremarkable chest x-ray. ECG Data Attestation: I personally reviewed and interpreted this ECG as follows: Interpretation: Normal sinus rhythm at 70 beats per minutes, normal axis deviation, normal intervals, no ST-T changes. Discharge Plan Discharge Clinical Impression: Acute dyspnea Patient Disposition: Home, Self-Care Instructions: Dyspnea (ED) Prescriptions: No Action Xarelto 15 mg Tablet 15 mg PO BID Qty: 41 RF: 0 Xarelto 20 mg tablet 20 mg PO DAILY Qty: 30 RF: 0 Referrals: Glen Solis MD [Primary Care Provider] - 2 days
[2021-05-03 12:57] LABS: D Dimer 289 NG/ML
[2021-05-03 13:02] VITALS: BP 139/100; PULSE 96; RESP 16; TEMP 36.9; O2SAT 99
[2021-05-03 13:06] LABS: Troponin-I High Sensitivity < 3.5 ng/L (<3.5-17.0)
[2021-05-03] MEDS: iohexoL 350 MG/ML 100 ML INFUS..BTL IV (14:44)
== END 2021-05-03 15:57 | disposition home or self-care (01) ==
PROVIDERS: Emergency Provider Emergency Medicine; PCP Internal Medicine
DX: R06.02 Shortness of breath (principal); Z79.899 Other long term (current) drug therapy
CPT/HCPCS: 36415; 71045; 71275; 80048; 84484; 85027; 85379; 93005; 99284; Q9967

== ENCOUNTER 2022-08-03 10:39 | Emergency (ER) | payer BC, SELFPAY ==
--- NOTE | ~2022-08-03 | XR_ITS ---
EXAMINATION: XR CHEST CLINICAL INFORMATION: Chest tightness. COMPARISON: 05/03/2021 chest radiograph. TECHNIQUE: Frontal view of the chest was obtained. FINDINGS: No significant abnormality is noted involving the heart, lungs, mediastinum, bony thorax or soft tissues. XR/XR chest 1V IMPRESSION: No acute cardiopulmonary process.
[2022-08-03 10:54] VITALS: BP 179/89; PULSE 87; RESP 20; TEMP 36.5; O2SAT 100; BMI 47.6
--- NOTE | 2022-08-03 10:57 | ECG_ITS ---
Test Reason : cp Blood Pressure : / mmHG Vent. Rate : 076 BPM Atrial Rate : 076 BPM P-R Int : 140 ms QRS Dur : 082 ms QT Int : 408 ms P-R-T Axes : 000 172 147 degrees QTc Int : 459 ms Suspect limb lead reversal, interpretation assumes no reversal Normal sinus rhythm Lateral infarct , age undetermined Inferior infarct , age undetermined Abnormal ECG When compared with ECG of 03-MAY-2021 13:20, QRS axis Shifted right Lateral infarct is now Present Referred By: Generic ED Physician Electronically Signed By:
[2022-08-03 11:58] VITALS: BP 131/74; PULSE 69; RESP 16; TEMP 36.9; O2SAT 100
[2022-08-03 14:15] LABS: IDNOW Serial# BCCEAD1C; Influenza A Negative (Negative); Influenza B2 Negative (Negative)
--- NOTE | 2022-08-03 14:15 | ED_ITS ---
HPI - General Adult General Chief complaint: General Medical Stated complaint: chest pain Time Seen by Provider: 08/03/22 11:37 Source: patient Mode of arrival: ambulatory History of Present Illness HPI narrative: 36-year-old female with a history of PE presents with concerns regarding chest tightness and intermittent sharp pain that started on Wednesday and not only isolated to exertion, she denies any respiratory or movement association and denies any fever, chills, recent travel, smoking history but is on progesterone and otherwise denies any GI or symptoms. Related Data Previous Rx's Medication Instructions Recorded rivaroxaban 15 mg tablet (Xarelto) 15 mg PO BID #41 tabs 07/06/20 rivaroxaban 20 mg tablet (Xarelto) 20 mg PO DAILY #30 tabs 07/06/20 Allergies Allergy/AdvReac Type Severity Reaction Status Date / Time No Known Allergies Allergy Verified 07/04/20 15:39 Review of Systems Review of Systems: Pertinent positives and negatives as stated in HPI. [facility] Past Medical History Source: nursing notes reviewed Medical History Obesity Pulmonary emboli Social History Social History Household Members: None Housing: House Do you presently have visiting nurse or other home services: No Alcohol intake: current Alcohol intake frequency: holidays/special occasions only Smoked in Last 30 Days: No Use of substances other than those prescribed or required for medical reasons: No Advance Directives: No Advance Directives Information Provided: Yes Patient : No service: No Physical Exam ED Vital Signs: Vital Signs - 24 hr 08/03/22 10:54 08/03/22 11:58 08/03/22 15:04 Temperature 97.7 F 98.5 F 98.7 F Pulse Rate 87 69 69 Respiratory Rate 20 16 12 Blood Pressure 179/89 H 131/74 137/83 Pulse Oximetry 100 100 97 Oxygen Delivery Method Room Air Room Air BMI result Body Mass Index 47.6 VITAL SIGNS: Reviewed. GENERAL: Elevated BMI, well developed, well nourished, in no acute distress. HEAD: Normocephalic/atraumatic EYES: PERRLA, EOMI EARS: Ext canals without abnormality OROPHARYNX: no oral lesions noted, posterior pharynx clear LUNGS: Normal breath sounds. No adventitious sounds or accessory muscle use. SpO2<100> CARDIOVASCULAR: Regular rate and rhythm without noted murmurs ABDOMEN: Soft, non-tender, non-distended with bowel sounds. MUSCULOSKELETAL: No tenderness, deformities, or effusions noted on gross inspection. EXTREMITIES: No cyanosis, clubbing or edema. SKIN: Inspection of the skin reveals no rashes NEUROLOGIC: Alert and oriented x 4. Strength and sensation to light touch were grossly intact x 4. Medical Decision Making Medical Decision Making [facility] Narrative: 36-year-old female with past history of PE and she states she is no longer on anticoagulation although and is obviously PERC positive because of prior PE. I have low clinical suspicion that this is the etiology we but will proceed with evaluating with a D-dimer. I reviewed all investigations and D-dimer is 154 inconsistent with PE and no evidence to suggest viral illness. Will obtain a chest x-ray for further evaluation. Reviewed all investigations and although there is an isolated leukocytosis this is been seen previously. I am not finding any etiology for patient's presentation. She is recommended to follow-up with her primary care provider for further evaluation. Differential Diagnosis Differential Diagnoses: The differential diagnosis associated with the presentation includes Please see discussion above Lab Data [facility] Lab Attestation statement: I reviewed the patient's lab results. Please see the discussion above 08/03/22 14:21 08/03/22 14:21 Labs: Lab Results 08/03/22 08/03/22 08/03/22 Range/Units 13:45 13:45 14:21 WBC 13.8 H (4.8-10.8) X10*3/uL RBC 4.44 (4.20-5.50) X10*6/uL Hgb 13.1 (12.0-16.0) g/dl Hct 38.8 (37.0-47.0) % MCV 87.4 (80.0-98.0) fL MCH 29.5 (27.0-33.0) pg MCHC 33.8 (31.0-35.0) g/dl RDW 13.1 (11.0-16.0) % Plt Count 284 (160-400) X10*3/uL MPV 10.0 (9.4-12.3) fL Immature Gran % (Auto) 0.4 (0.0-0.4) % Neut % (Auto) 70.3 (45-73) % Lymph % (Auto) 20.9 (20-40) % [place] % (Auto) 7.2 (2-11) % Eos % (Auto) 0.8 (0-4) % Baso % (Auto) 0.4 (0-2) % Lymph # (Auto) 2.9 (1.2-4.9) X10*3/uL [place] # (Auto) 1.0 (0.1-1.2) X10*3/uL Eos # (Auto) 0.1 (0.0-0.4) X10*3/uL Baso # (Auto) 0.1 (0.0-0.2) X10*3/uL Abs Immat Gran (auto) 0.06 H (0.00-0.03) X10*3/uL Absolute Neuts (auto) 9.7 H (2.0-8.3) x10*3/uL Absolute Nucleated RBC 0.000 (0.0-0.012) X10*3/uL Nucleated RBC % (auto) 0.0 (0.0-0.2) /100WBC D-Dimer High Sensitivty NG/ML Sodium (135-145) mmol/L Potassium (3.3-5.1) mmol/L Chloride (96-108) mmol/L Carbon Dioxide (22-29) mmol/L Anion Gap (12-20) BUN (9-16) mg/dL Creatinine (0.5-1.4) mg/dL Estim Creat Clear Calc Estimated GFR Random Glucose (60-115) mg/dL Calcium (8.4-10.2) mg/dL Total Bilirubin (0.0-1.0) mg/dL AST (5-31) U/L ALT (0-31) U/L Alkaline Phosphatase (39-117) U/L Total Protein (6.5-8.0) g/dL Albumin (3.5-5.0) g/dL COVID-19 (SAMUEL) Negative (Negative) COVID-19 Clin Com See Note Influenza Type A (TEJA) Negative (Negative) Influenza Type B (TEJA) Negative (Negative) Influenza A & B Note See Note 08/03/22 08/03/22 Range/Units 14:21 14:21 WBC (4.8-10.8) X10*3/uL RBC (4.20-5.50) X10*6/uL Hgb (12.0-16.0) g/dl Hct (37.0-47.0) % MCV (80.0-98.0) fL MCH (27.0-33.0) pg MCHC (31.0-35.0) g/dl RDW (11.0-16.0) % Plt Count (160-400) X10*3/uL MPV (9.4-12.3) fL Immature Gran % (Auto) (0.0-0.4) % Neut % (Auto) (45-73) % Lymph % (Auto) (20-40) % [place] % (Auto) (2-11) % Eos % (Auto) (0-4) % Baso % (Auto) (0-2) % Lymph # (Auto) (1.2-4.9) X10*3/uL [place] # (Auto) (0.1-1.2) X10*3/uL Eos # (Auto) (0.0-0.4) X10*3/uL Baso # (Auto) (0.0-0.2) X10*3/uL Abs Immat Gran (auto) (0.00-0.03) X10*3/uL Absolute Neuts (auto) (2.0-8.3) x10*3/uL Absolute Nucleated RBC (0.0-0.012) X10*3/uL Nucleated RBC % (auto) (0.0-0.2) /100WBC D-Dimer High Sensitivty 154 NG/ML Sodium 141 (135-145) mmol/L Potassium 4.2 (3.3-5.1) mmol/L Chloride 107 (96-108) mmol/L Carbon Dioxide 25 (22-29) mmol/L Anion Gap 13 (12-20) BUN 11 (9-16) mg/dL Creatinine 0.85 (0.5-1.4) mg/dL Estim Creat Clear Calc 131.2 Estimated GFR > 60 Random Glucose 83 (60-115) mg/dL Calcium 8.9 (8.4-10.2) mg/dL Total Bilirubin 0.4 (0.0-1.0) mg/dL AST 12 (5-31) U/L ALT 17 (0-31) U/L Alkaline Phosphatase 118 H (39-117) U/L Total Protein 6.7 (6.5-8.0) g/dL Albumin 3.8 (3.5-5.0) g/dL COVID-19 (SAMUEL) (Negative) COVID-19 Clin Com Influenza Type A (TEJA) (Negative) Influenza Type B (TEJA) (Negative) Influenza A & B Note Independent Interpretation I performed an independent interpretation of an: EKG Interpretation: Normal sinus rhythm, HR-79, no STEMI, PA/QRS/QTC is within normal limits. Radiology Impression Radiologist Impression: My interpretation is in agreement with radiologist impression of the imaging study. External Record Review External record reviewed: Outpatient record and Prior outpatient labs Discharge Plan Discharge Clinical Impression: Atypical chest pain Patient Disposition: Home, Self-Care Instructions: Chest Pain (ED) Additional Instructions: 1. Resume all home medications as prescribed. 2. Follow-up with your primary care provider for re-evaluation in the next 1-2 days. Return to the ER for any worsening symptoms. Prescriptions: No Action Xarelto 15 mg Tablet 15 mg PO BID Qty: 41 0RF Rx Instructions: Take Xarelto 15 mg twice daily for 3 weeks then take 20 mg by mouth daily Xarelto 20 mg tablet 20 mg PO DAILY Qty: 30 0RF Rx Instructions: must administer with evening meal
[2022-08-03 14:17] LABS: COVID-19 Test Negative (Negative); IDNOW Serial# 55D5AD1C
[2022-08-03 14:25] LABS: MANUAL DIFF FLAG NO
[2022-08-03 14:26] LABS: Basophils Absolute Auto 0.1 X10*3/uL (0.0-0.2); Basophils Percent Auto 0.4 % (0-2); Eosinophils Absolute Auto 0.1 X10*3/uL (0.0-0.4); Eosinophils Percent Auto 0.8 % (0-4); Hematocrit 38.8 % (37.0-47.0); Hemoglobin 13.1 g/dl (12.0-16.0); Imm Gran Abs Auto 0.06 X10*3/uL (0.00-0.03); Imm Gran Pct Auto 0.4 % (0.0-0.4); Lymphocytes Absolute Auto 2.9 X10*3/uL (1.2-4.9); Lymphocytes Percent Auto 20.9 % (20-40); Mean Corpuscular HGB Conc 33.8 g/dl (31.0-35.0); Mean Corpuscular Hemoglobin 29.5 pg (27.0-33.0); Mean Corpuscular Volume 87.4 fL (80.0-98.0); Monocytes Percent Auto 7.2 % (2-11); Neutrophils Absolute Auto 9.7 x10*3/uL (2.0-8.3); Neutrophils Percent Auto 70.3 % (45-73); Platelet Count 284 X10*3/uL (160-400); Red Blood Count 4.44 X10*6/uL (4.20-5.50); Red Cell Distribution Width 13.1 % (11.0-16.0); White Blood Count 13.8 X10*3/uL (4.8-10.8)
[2022-08-03 14:34] LABS: D Dimer High Sensitivity 154 NG/ML
[2022-08-03 14:45] LABS: Alanine Aminotransferase 17 U/L (0-31); Albumin Level 3.8 g/dL (3.5-5.0); Alkaline Phosphatase 118 U/L (39-117); Anion Gap 13 (12-20); Aspartate Amino Transferase 12 U/L (5-31); Bilirubin Total 0.4 mg/dL (0.0-1.0); Blood Urea Nitrogen 11 mg/dL (9-16); Calcium 8.9 mg/dL (8.4-10.2); Carbon Dioxide 25 mmol/L (22-29); Chloride 107 mmol/L (96-108); Creatinine Clr Calc Pharmacy 131.2; Estimated Glomerular Filt Rate > 60; Glucose Random 83 mg/dL (60-115); Potassium 4.2 mmol/L (3.3-5.1); Sodium 141 mmol/L (135-145); Total Protein 6.7 g/dL (6.5-8.0)
[2022-08-03 15:04] VITALS: BP 137/83; PULSE 69; RESP 12; TEMP 37.1; O2SAT 97
== END 2022-08-03 16:35 | disposition home or self-care (01) ==
PROVIDERS: Emergency Provider Student in an Organized Health Care Education/Training Program
DX: R07.89 Other chest pain (principal); Z20.822 Contact with and (suspected) exposure to COVID-19; Z20.828 Contact with and (suspected) exposure to other viral communicable diseases; Z79.899 Other long term (current) drug therapy
CPT/HCPCS: 71045; 80053; 85025; 85379; 87502; 87635; 93005; 99283; 99284